=== PATIENT | female | born 1950 | race Caucasian/White ===

== ENCOUNTER 2019-07-28 20:32 | Inpatient (IN) ==
[2019-07-28 21:11] LABS: Basophils % 0.4 % (0.0-0.8); Eosinophils # 0.2 10*3/uL (0.0-0.87); Eosinophils % 1.6 % (0.00-10.9); Hematocrit 39.5 VOL% (35.7-47.0); Lymphocytes # 2.9 10*3/uL (1.4-4.0); Lymphocytes % 29.1 % (21.3-54.2); Mean Corpuscular HGB Conc 32.9 GM/DL (32-36); Mean Corpuscular Volume 96.8 FL (87-102); Mean Platelet Volume 10.5 FL (9.6-12.0); Monocytes % 7.9 % (1.7-12.7); Platelet Count 182 T/CUMM (130-400); Red Blood Count 4.08 MC/CUMM (3.8-5.5); Red Cell Distribution Width 13.9 % (9.3-17.3)
[2019-07-28 21:21] LABS: INR 0.9; PT Patient Result 10.1 SECS (9.8-11.9); Partial Thromboplastin Time 25.4 SECS (23.9-33.8)
[2019-07-28 21:29] LABS: Alanine Aminotransferase 20 U/L (13-56); Albumin 3.4 G/DL (3.4-5.0); Alkaline Phosphatase 83 U/L (45-117); Aspartate Amino Transferase 28 U/L (0-37); Bilirubin,Total < 0.39 MG/DL (0.2-1.0); Blood Urea Nitrogen 20 MG/DL (7-18); Calcium 8.8 MG/DL (8.5-10.1); Estimated Glom Filtration Rate 79 ML/MIN; Glucose 155 MG/DL (74-106); Osmolality,Calculated 275.1 MOS/KG (273-304); Total Protein 7.4 G/DL (6.4-8.3)
[2019-07-28] MEDS ORDERED: ONDANSETRON 4 MG/2 ML VIAL IV PRN (22:40)
[2019-07-28] MEDS ORDERED: ACETAMINOPHEN 325 MG TABLET PO PRN (22:40)
[2019-07-28] MEDS ORDERED: HYDROmorphone 2 MG/1 ML VIAL IV PRN (22:40)
[2019-07-28 22:43] LABS: Apearance,Urine CLEAR (Clear); Bacteria,Urine Occasional /HPF (Few); Bilirubin,Urine Negative (Negative); Blood, Urine Small mg/dL (Negative); Glucose,Urine (UA) Negative (Negative); Ketones,Urine Negative (Negative); Mucus,Urine Occasional /LPF (Occasional); Nitrite,Urine Negative (Negative); Protein,Urine Negative; RBC,Urine 5 /HPF (0-4); Squamous Epithelial Cell,Urine Occasional /HPF (0-10); Urine Color Straw (Yellow); Urine Specific Gravity 1.048 (1.001-1.035); Urine Urobilinogen < 2.0 EU/DL (0.2-1.0); WBC,Urine 17 /HPF (0-6)
[2019-07-28 22:53] LABS: Barbiturates Screen,Urine Negative (Negative); Benzodiazepines Screen,Urine Negative (Negative); Cannabinoid Screen,Urine Negative (Negative); Opiate Screen,Urine Negative (Negative); Phencyclidine Screen,Urine Negative (Negative)
[2019-07-28] MEDS ORDERED: cefTRIAXone 1,000 MG in SODIUM CHLORIDE 0.9% 100 ML IV STA (22:57)
[2019-07-28] MEDS ORDERED: ACETAMINOPHEN 500 MG TABLET PO STA (23:00)
[2019-07-29] MEDS ORDERED: LACTATED RINGERS 1,000 ML IV ONE (00:22)
[2019-07-29] MEDS ORDERED: SODIUM CHLORIDE 0.9% 1,000 ML IV STA (00:30)
[2019-07-29] MEDS: LACTATED RINGERS 1,000 ML IV SCH ×4 (01:42→23:33)
[2019-07-29 02:18] LABS: Basophils % 0.2 % (0.0-0.8); Eosinophils % 0.1 % (0.00-10.9); Hematocrit 33.7 VOL% (35.7-47.0); Hemoglobin 11.6 GM/DL (12.0-16.0); Immature Granulocytes % 0.6 %; Immature Granulocytes Absolute 0.05 #; Lymphocytes % 11.2 % (21.3-54.2); Mean Corpuscular HGB Conc 34.4 GM/DL (32-36); Mean Corpuscular Volume 94.4 FL (87-102); Mean Platelet Volume 10.5 FL (9.6-12.0); Monocytes % 7.5 % (1.7-12.7); Neutrophils % 80.4 % (38.7-73.9); Platelet Count 135 T/CUMM (130-400); Red Blood Count 3.57 MC/CUMM (3.8-5.5); Red Cell Distribution Width 13.8 % (9.3-17.3); White Blood Count 8.8 T/CUMM (4-12)
[2019-07-29 02:41] LABS: Alanine Aminotransferase 15 U/L (13-56); Alkaline Phosphatase 53 U/L (45-117); Aspartate Amino Transferase 24 U/L (0-37); Bilirubin,Total < 0.39 MG/DL (0.2-1.0); Blood Urea Nitrogen 17 MG/DL (7-18); Calcium 8.2 MG/DL (8.5-10.1); Estimated Glom Filtration Rate 100 ML/MIN; Glucose 133 MG/DL (74-106); Osmolality,Calculated 278.7 MOS/KG (273-304); Total Protein 6.5 G/DL (6.4-8.3)
[2019-07-29] MEDS: MORPHINE 4 MG/1 ML VIAL IV PRN ×3 (09:35→16:29)
[2019-07-29] MEDS: PANTOPRAZOLE 40 MG TABLET PO SCH (09:37)
[2019-07-29] MEDS: POTASSIUM CHLORIDE 20 MEQ/15 ML UDCUP PER TUBE PRN ×4 (09:55→17:16)
[2019-07-29] MEDS ORDERED: KETOROLAC 30 MG/1 ML VIAL IV ONE (17:31)
[2019-07-30] MEDS ORDERED: KETOROLAC 15 MG/1 ML VIAL IV SCH ×2
[2019-07-30] MEDS: KETOROLAC 15 MG/1 ML VIAL IV SCH ×5 (00:06→23:37)
[2019-07-30] MEDS: POTASSIUM CHLORIDE 20 MEQ/15 ML UDCUP PER TUBE PRN ×2 (01:40→03:24)
[2019-07-30 03:34] LABS: Basophils % 0.4 % (0.0-0.8); Eosinophils # 0.1 10*3/uL (0.0-0.87); Eosinophils % 1.5 % (0.00-10.9); Hematocrit 33.5 VOL% (35.7-47.0); Hemoglobin 10.9 GM/DL (12.0-16.0); Immature Granulocytes % 0.4 %; Immature Granulocytes Absolute 0.02 #; Lymphocytes # 1.2 10*3/uL (1.4-4.0); Lymphocytes % 25.6 % (21.3-54.2); Mean Corpuscular HGB Conc 32.5 GM/DL (32-36); Mean Corpuscular Volume 98.8 FL (87-102); Mean Platelet Volume 10.8 FL (9.6-12.0); Monocytes % 10.1 % (1.7-12.7); Platelet Count 110 T/CUMM (130-400); Red Blood Count 3.39 MC/CUMM (3.8-5.5); Red Cell Distribution Width 14.4 % (9.3-17.3); White Blood Count 4.6 T/CUMM (4-12)
[2019-07-30 03:55] LABS: Calcium 8.8 MG/DL (8.5-10.1); Osmolality,Calculated 275.8 MOS/KG (273-304)
[2019-07-30] MEDS: HYDROmorphone 2 MG/1 ML VIAL IV PRN ×4 (08:02→20:47)
[2019-07-30] MEDS: PANTOPRAZOLE 40 MG TABLET PO SCH (09:44)
[2019-07-30] MEDS ORDERED: tiZANidine 4 MG TABLET PO PRN (13:47)
[2019-07-30] MEDS: amLODIPine 5 MG TABLET PO SCH (20:46)
[2019-07-31] MEDS: KETOROLAC 15 MG/1 ML VIAL IV SCH ×3 (05:58→18:36)
[2019-07-31] MEDS: HYDROmorphone 2 MG/1 ML VIAL IV PRN (06:43)
[2019-07-31] MEDS: ESCITALOPRAM 10 MG TABLET PO SCH (09:01)
[2019-07-31] MEDS: PANTOPRAZOLE 40 MG TABLET PO SCH (09:01)
[2019-07-31] MEDS: MAGNESIUM OXIDE 400 MG TABLET PO SCH (09:02)
[2019-07-31] MEDS: BISOPROLOL/HCTZ 10-6.25 MG TABLET PO SCH (09:02)
[2019-07-31] MEDS: ROSUVASTATIN 10 MG TABLET PO SCH (09:02)
[2019-07-31] MEDS ORDERED: MAGNESIUM HYDROXIDE SUSP 30 ML UDCUP PO ONE (10:00)
[2019-07-31] MEDS: amLODIPine 5 MG TABLET PO SCH (21:23)
[2019-08-01] MEDS: KETOROLAC 15 MG/1 ML VIAL IV SCH ×3 (00:14→12:35)
[2019-08-01] MEDS: BISOPROLOL/HCTZ 10-6.25 MG TABLET PO SCH (08:53)
[2019-08-01] MEDS: MAGNESIUM OXIDE 400 MG TABLET PO SCH (08:53)
[2019-08-01] MEDS: ESCITALOPRAM 10 MG TABLET PO SCH (08:54)
[2019-08-01] MEDS: PANTOPRAZOLE 40 MG TABLET PO SCH (08:54)
[2019-08-01] MEDS: ROSUVASTATIN 10 MG TABLET PO SCH (08:54)
[2019-08-01 12:25] VITALS: BP 137/67
== END 2019-08-01 14:07 | disposition home or self-care (01) | DRG 184 ==
LOC: EDBD → EDUNIT# → N.EDINP 20:32 → N.ED 20:32 → N.CLINP 07-29 00:45 → N.3E 07-31 17:45
PROVIDERS: ADMIT Surgery; ATTEND Surgery